=== PATIENT | male | born 1970 | race Two or more races ===

== ENCOUNTER 2019-05-18 00:01 | Emergency (ER) | payer MEDICAID ==
[~2019-05-18] VITALS: Ht 154.9 cm; Wt 74.4 kg
[2019-05-18 00:33] LABS: Basophils # (auto) 0 uL; Basophils % (auto) 0.7 % (0.0-2.0); Eosinophils # (auto) 0.3 uL; Eosinophils % (auto) 4.7 % (0.0-7.0); Hemoglobin 14.6 g/dL (13.5-17.5); Lymphocytes # (auto) 2.4 uL; Lymphocytes % (auto) 40.8 % (10.0-50.0); Mean Corpuscular Hemoglobin 30.2 pg (28.0-32.0); Monocytes # (auto) 0.7 uL; Monocytes % (auto) 11.5 % (0.0-12.0); Neutrophils # (auto) 2.5 uL; Neutrophils % (auto) 42.3 % (37.0-80.0); Nucleated Red Blood Cells % 0.2 %; Platelet Count (auto) 259 10^3/uL (140-450); Red Blood Cells 4.83 10^6/uL (4.5-5.90)
[2019-05-18 00:48] LABS: Albumin 3.6 g/dL (3.4-5.0); Anion Gap 8 (5-15); Blood Urea Nitrogen 18 mg/dL (7-18); Calcium 8.1 mg/dL (8.5-10.1); Carbon Dioxide 28 mmol/L (21-32); Chloride 107 mmol/L (98-107); Glucose 106 mg/dL (74-106); Potassium 3.9 mmol/L (3.5-5.1); Sodium 143 mmol/L (136-145)
[2019-05-18 00:50] LABS: INR 0.94 (0.9-1.15)
[2019-05-18 00:56] LABS: BUN/Creatinine Ratio 19.1; GFR African American 109 mL/min; GFR Non-African American 90 mL/min
[2019-05-18 01:07] LABS: Alanine Aminotransferase 39 U/L (16-61); Alkaline Phosphatase 121 U/L (45-117); Aspartate Aminotransferase 20 U/L (15-37); Bilirubin, Total 0.4 mg/dL (0.2-1.0); Total Protein 7.1 g/dL (6.4-8.2)
[2019-05-18 03:27] VITALS: BP 128/82
[2019-05-18] MEDS ORDERED: MORPHINE SULFATE 4 MG/ML SYR/VIAL IV ONE (04:30)
[2019-05-18] MEDS ORDERED: ASPirin-EC 325mg tab PO ONE (04:30)
== END 2019-05-18 06:13 | disposition home or self-care (01) ==
LOC: ER 00:06
DX: R07.9 Chest pain, unspecified (principal)
CPT/HCPCS: 36415; 71045; 80053; 83880; 84484; 85025; 85610; 85730; 93005; 96374; 99284; J2270